=== PATIENT | female | born 1960 | race Caucasian/White ===

== ENCOUNTER 2021-08-04 08:44 | Observation (INO) ==
[2021-08-04] MEDS ORDERED: ZOFRAN INJ 4 MG VIAL IM ONE (08:55)
[2021-08-04] MEDS ORDERED: DEMEROL INJ IM ONE (08:55)
--- NOTE | 2021-08-04 08:57 | ED.ABDFE ---
HPI Time Seen Time Seen by Provider: 08/04/21 08:53 PCP Primary Care Physician: KATIE ALVARENGA HPI Comment HPI Comment: PATIENT IS 61YR OLD FEMALE IN ER WITH NAUSEA, VOMITING TIMES 2 DAYS. WORSE TODAY, NO FEVER OR DYSURIA. PAIN IS SHARP UPPER ABDOMINAL AREA AND IS 10/10. SEEN IN ER YESTERDAY FOR PAIN AND TREATED FOR GASTRITIS. DID NOT IMPROVED. Complaint Doctors Chief Complaint Comments: ABDOMINAL PAIN, NAISEA AND VOMITING TIMES 2 DAYS. Chief Complaint:: PT. C/O ABDOMINAL PAIN WELL NAUSEA/VOMITING. PT. WAS SEEN IN THE ER YESTERDAY AND WAS DIAGNOSED WITH GASTRITIS. COVID-19 Coronavirus risk:travel/contact w/high risk person: No Has patient experienced Coronavirus symptoms: No Reviewed Nurses Notes Review: Yes Source History Provided: Patient Mode of arrival Mode of Arrival: Ambulatory Timing Onset of Chief Complaint: 08/02/21 Came on: Suddenly Duration Since Onset: Constant Duration: Days Location Location: RUQ, LUQ and Epigastric Severity Severity: Severe Quality Quality: Sharp Context History of: None Modifying factors Worsening Factors: Food Improving Factors: Nothing Associated signs and symptoms Associated Signs and Symptoms: Nausea and Vomiting; denies Hematochezia Other history Other History: HYPOTHYROIDISM. PMH PMH Past Medical History: Yes Past Medical History: Hypothyroidism Past Surgical History: Yes Surgical History: Hysterectomy and Thyroidectomy Family History History of Family Medical Conditions: No Social History Does patient currently use any type of tobacco product: No Have you used tobacco products in the last 12 months: No Type of Tobacco Use: None Does any household member use tobacco: No Alcohol Use: None Do you use any recreational Drugs:: No Lives With: Alone Lives Where: Home Travel Risk Coronavirus risk:travel/contact w/high risk person: No Has patient experienced Coronavirus symptoms: No Infectious screening In the last 2 months have you had wt loss of >10#?: NO Have you had fever, night sweats or hemotysis?: No Have you traveled outside the country in the last 6 months?: No Isolation: Standard ROS Review of Systems Constitutional: See HPI, Weakness and Fatigue; negative Fever Eyes: No Symptoms Reported and See HPI ENTM: No Symptoms Reported and See HPI; negative Nose Discharge and Nose Congestion Respiratoy: No Symptoms Reported and See HPI; negative Moist Cough, Short of Breath and Wheezing Cardiovascular: No Symptoms Reported and See HPI; negative Chest Pain Gastrointestinal/Abdominal: See HPI, Abdominal Pain, Nausea and Vomiting; negative Diarrhea Genitourinary: No Symptoms Reported and See HPI; negative Dysuria Neurological: See HPI and Weakness Musculoskeletal: No Symptoms Reported and See HPI; negative Back Pain Integumentary: No Symptoms Reported and See HPI; negative Rash and Juandice Hematologic/Lymphatic: No Symptoms Reported and See HPI; negative Easy Bruising Endocrine: No Symptoms Reported and See HPI; negative Increased Thirst and Increased Urine Psychiatric: No Symptoms Reported and See HPI All Other Systems: Reviewed and Negative PE Vital Signs Vitals: Temperature 98.9 F Pulse Rate 83 Respiratory Rate 20 Blood Pressure [Left Arm] 181/90 Blood Pressure 180/94 O2 Sat by Pulse Oximetry 98 General Limitations: No Limitations General Appearance: Alert and In No Apparent Distress Head Head Exam: Normal Inspection and Atraumatic Eyes Eye exam: Normal Appearance; negative Scleral Icterus and Conjunctival Injection ENT ENT Exam: Normal Exam, Normal Oropharynx, Normal External Ear Exam and TM's Normal Bilaterally Neck Neck Exam: Normal Inspection and Trachea Midline; negative Tenderness Chest Chest Inspection: Normal Inspection and Symmetric Chest Wall Rise; negative Te nderness Respiratory Respiratory Exam: Normal Lung Sounds Bilat; negative Accessory Muscle Use, Chest Wall Tenderness and Respiratory Distress Respiratory Exam: Bilateral: Clear to Auscultation Cardiovascular Cardiovascular Exam: Regular Rate, Normal Rhythm and Normal Heart Sounds; negative Systolic Murmur and Diastolic Murmur Abdominal Exam Abdominal Exam: Normal Bowel Sounds, Soft and Tenderness Abdominal Tenderness: RUQ, LUQ, Epigastrium and Severe Rectal Rectal Exam: Deferred Back Back Exam: Normal Inspection; negative (R) CVA Tenderness and (L) CVA Tenderness Extremeties Extremities Exam: Normal Inspection and Normal Capillary Refill External Exam: Female: Deferred : Speculum Exam (Female): Deferred : Bimanual Exam (female): Deferred Neurologic Neurological Exam: Alert and Oriented X3; negative Motor Sensory Deficit Psychiatric Psychiatric Exam: Normal Affect and Normal Mood Skin Skin Exam: Warm, Dry and Intact MDM Differential Diagnosis Differential Diagnosis- Considerations may include:: Cholcystitis, Cholelethiasis, Constipation, Diverticular disease, Gastroenteritis, Inflammatory BD, Urinary tract infection and Urolithiasis COURSE Treatment Treatment: SEE ORDERS DONE WHILE PATIENT WAS IN ER. PATIENT WAS GIVEN DEMOROL 50MG IM AND ZOFRAN 4MG IM WHILE IN ER. LABS AND XRAY REPORTS DISCUSSED WITH PATIENT WHILE IN ER. ADMITTED TO HOSPITAL FOR FURTHER MANAGEMENT. Reevaluation 1st: Improved (PAIN IMPROVED.) Consultation Consultation Comments: PATIENT ADMITTED TO HOSPITAL BY DR. FITZGERALD. Education/Counseling Education/Counseling: Patient Educated On: Diagnosis ROR Labs Reviewed Laboratory Results Reviewed?: Yes Result Diagrams: 08/06/21 05:41 08/06/21 05:41 Laboratory: WBC 15.5 X10^3/uL (3.6-10.0) H 08/04/21 09:01 RBC 4.93 X10^6/uL (3.5-5.4) 08/04/21 09:01 Hgb 14.4 g/dL (12.0-16.0) 08/04/21 09:01 Hct 42.6 % (36.0-47.0) 08/04/21 09:01 MCV 86.4 fL (80.0-100.0) 08/04/21 09:01 MCH 29.2 pg (27.0-34.0) 08/04/21 09:01 MCHC 33.7 g/dL (33.0-35.0) 08/04/21 09:01 RDW 14.1 % (11.6-16.5) 08/04/21 09:01 Plt Count 274 X10^3/uL (150.0-450.0) 08/04/21 09:01 MPV 8.6 fL (7.4-11.0) 08/04/21 09:01 Neut % (Auto) 86.0 % (42.0-75.0) H 08/04/21 09:01 Lymph % (Auto) 4.7 % (21.0-51.0) L 08/04/21 09:01 [place] % (Auto) 8.9 % (0.0-13.0) 08/04/21 09:01 Eos % (Auto) 0.1 % (0.9-2.9) L 08/04/21 09:01 Baso % (Auto) 0.3 % (0.2-1.0) 08/04/21 09:01 Neut # (Auto) 13.3 x10^3/uL (2.2-4.8) H 08/04/21 09:01 Lymph # (Auto) 0.7 X10^3/uL (1.3-2.9) L 08/04/21 09:01 [place] # (Auto) 1.4 x10^3/uL (0.3-0.8) H 08/04/21 09:01 Eos # (Auto) 0.0 x10^3/uL (0.0-0.2) 08/04/21 09:01 Baso # (Auto) 0.0 X10^3/uL (0.0-0.1) 08/04/21 09:01 Absolute Nucleated RBC 0.0 /100WBC 08/04/21 09:01 Sodium 136 mmol/L (136-145) 08/04/21 09:01 Corrected Sodium 137 mmol/L (136-145) 08/04/21 09:01 Potassium 3.6 mmol/L (3.5-5.1) 08/04/21 09:01 Chloride 98 mmol/L (98-107) 08/04/21 09:01 Carbon Dioxide 31.8 mmol/L (21-32) 08/04/21 09:01 BUN 12 mg/dL (7-18) 08/04/21 09:01 Creatinine 1.10 mg/dL (0.55-1.02) H 08/04/21 09:01 Est GFR (MDRD) Af Amer > 60 (>60) 08/04/21 09:01 Est GFR (MDRD) Non-Af 54 (>60) L 08/04/21 09:01 Glucose 139 mg/dL (65-99) H 08/04/21 09:01 Calcium 8.3 mg/dL (8.5-10.1) L 08/04/21 09:01 Corrected Calcium TNP 08/04/21 09:01 Total Bilirubin 1.00 mg/dL (0.2-1.0) 08/04/21 09:01 AST 17 Units/L (15-37) 08/04/21 09:01 ALT 19 Units/L (12-78) 08/04/21 09:01 Alkaline Phosphatase 76 Units/L (46-116) 08/04/21 09:01 Total Protein 7.6 g/dL (6.4-8.2) 08/04/21 09:01 Albumin 3.4 g/dL (3.4-5.0) 08/04/21 09:01 Globulin 4.2 g/dL (2.5-4.5) 08/04/21 09:01 Albumin/Globulin Ratio 0.8 Ratio (1.1-2.1) L 08/04/21 09:01 Amylase 99 Units/L (25-115) 08/04/21 09:01 Lipase 500 Units/L (73-393) H 08/04/21 09:01 SARS CoV-2 RNA Rapid LISSETH Negative (NEGATIVE) 08/04/21 12:58 XRAY XRAY Interpreted by: Radiologist (REPORT NOTED.) and Self Opioid Opioid Risk Tool Age (Ulisses box if 16-45): No History of Preadolescent Sexual Abuse: No Total: 0 Total Score Risk Category: Low Risk Copyright: Juan Francisco BERNARDO predicting aberrant behaviors Diagnosis Discharge Problem: Acute cholecystitis Abdominal pain Qualifiers: Abdominal location: upper abdomen, unspecified Qualified Code(s): R10.10 - Upper abdominal pain, unspecified Cholelithiasis Qualifiers: Cholelithiasis location: gallbladder Cholecystitis presence: with cholecystitis Cholecystitis acuity: acute Biliary obstruction: without biliary obstruction Qualified Code(s): K80.00 - Calculus of gallbladder with acute cholecystitis without obstruction Instructions Instructions: Laparoscopic Cholecystectomy Laparoscopic Cholecystectomy, Care After Eating Plan for Dumping Syndrome Gallbladder Eating Plan Dumping Syndrome [place] Diet Forms: Precautions for COVID19 [facility] Patient [facility] Social Distancing
[2021-08-04] MEDS ORDERED: DEMEROL INJ ONE (09:05)
[2021-08-04] MEDS ORDERED: ZOFRAN INJ 4 MG VIAL ONE ×2 (09:05→11:32)
[2021-08-04 09:13] LABS: BASOPHILS % (AUTO) 0.3 % (0.2-1.0); EOSINOPHILS % (AUTO) 0.1 % (0.9-2.9); HEMATOCRIT 42.6 % (36.0-47.0); HEMOGLOBIN 14.4 g/dL (12.0-16.0); LYMPHOCYTES # (AUTO) 0.7 X10^3/uL (1.3-2.9); LYMPHOCYTES % (AUTO) 4.7 % (21.0-51.0); MEAN CORPUSCULAR HEMOGLOBIN 29.2 pg (27.0-34.0); MEAN CORPUSCULAR HGB CONC 33.7 g/dL (33.0-35.0); MEAN CORPUSCULAR VOLUME 86.4 fL (80.0-100.0); MEAN PLATELET VOLUME 8.6 fL (7.4-11.0); MONOCYTES # (AUTO) 1.4 x10^3/uL (0.3-0.8); MONOCYTES % (AUTO) 8.9 % (0.0-13.0); NEUTROPHILS # (AUTO) 13.3 x10^3/uL (2.2-4.8); RED BLOOD COUNT 4.93 X10^6/uL (3.5-5.4); RED CELL DISTRIBUTION WIDTH 14.1 % (11.6-16.5); WHITE BLOOD COUNT 15.5 X10^3/uL (3.6-10.0)
[2021-08-04 09:24] LABS: ALANINE AMINOTRANSFERASE 19 Units/L (12-78); ALBUMIN 3.4 g/dL (3.4-5.0); ALKALINE PHOSPHATASE 76 Units/L (46-116); AMYLASE 99 Units/L (25-115); ASPARTATE AMINO TRANSFERASE 17 Units/L (15-37); BLOOD UREA NITROGEN 12 mg/dL (7-18); CALCIUM 8.3 mg/dL (8.5-10.1); CARBON DIOXIDE 31.8 mmol/L (21-32); CHLORIDE 98 mmol/L (98-107); COR NA(FOR HYPERGLY) 137 mmol/L (136-145); LIPASE 500 Units/L (73-393); SODIUM 136 mmol/L (136-145); TOTAL PROTEIN 7.6 g/dL (6.4-8.2); eGFR NON BLACK RACES 54 (>60)
--- NOTE | 2021-08-04 10:31 | CT ---
HISTORYAbdominal pain, nausea, vomitingSTUDYCT abdomen pelvis without contrastTechnique: Axial noncontrast images with coronal and sagittal reformats. Dose reduction procedures were used with mA/kv adjusted for body size. THIS EXAMINATION IS LIMITED DUE TO THE LACK OF INTRAVENOUS AND ORAL CONTRAST. The examination was performed in this manner at the sole discretion of the ordering caregiver.COMPARISONNoneFINDINGSThe lung bases are clear. The liver is normal in size and configuration without focal space-occupying disease at least to the limitations of an unenhanced examination. Cholelithiasis is present within a somewhat distended gallbladder which demonstrates some wall thickening and mild pericholecystic inflammation. Developing acute cholecystitis is suspected. Sonography may be of further diagnostic value in assessing these findings. The spleen, adrenal glands, and pancreas are within normal limits only to the limitations of an unenhanced examination. The kidneys are unobstructed and without stones or masses. No ureteral calculi are identified. The appendix is not identified with absolute certainty. Patient may be status post appendectomy. There are no findings suggestive of enteritis, colitis, or diverticulitis. Surgical clips are present within the pelvis. No pelvic masses, pelvic fluid, or pelvic lymphadenopathy is identified. No bladder abnormality is identified. No lytic or blastic skeletal lesions of significance are identified. There is grade 1 anterolisthesis L5 on S1 secondary to bilateral spondylolysis at L5.IMPRESSIONCholelithiasis within a mildly distended gallbladder demonstrating gallbladder wall thickening and mild pericholecystic inflammation suggestive of developing acute cholecystitis. Sonography may be of further diagnostic value in assessing for cholecystitis. Surgical evaluation is recommended.Grade 1 anterolisthesis L5 on S1 secondary to bilateral spondylolysis at [id number] signed by: BE DIAZ (Aug 04, 2021 10:30:43)
[2021-08-04] MEDS ORDERED: ZOFRAN INJ 4 MG VIAL IVP ONE (11:25)
--- NOTE | 2021-08-04 12:08 | US ---
HISTORYCholecystitis, abdominal painSTUDYGallbladder sonogramTechnique: Multiple grayscale sonographic images were obtained.COMPARISONCT abdomen pelvis same dateFINDINGSThe liver was mildly enlarged AP diameter 19.1 cm. No cyst, masses, biliary ductal dilatation identified. Limited Doppler evaluation was normal. There is a gallstone present in the neck of the gallbladder. There is gallbladder wall thickening and minimal pericholecystic fluid suggestive of acute cholecystitis. Common duct measures 3.7 mm. Right kidney measured 10.4 cm in length and demonstrated no solid masses, hydronephrosis, stones, or perinephric fluid collections. The head and body of the pancreas appear normal. The tail was obscured by overlying bowel gas.IMPRESSIONCholelithiasis with gallbladder wall thickening and minimal pericholecystic fluid suggestive of developing acute cholecystitis. Surgical evaluation is recommended.Electronically signed by: BE DIAZ (Aug 04, 2021 12:07:17)
[2021-08-04] MEDS ORDERED: ZOFRAN INJ 4 MG VIAL IVP PRN (14:31)
[2021-08-04] MEDS: NS 1,000 ML IV 1,000 ML IV SCH (14:43)
[2021-08-04] MEDS: LEVAQUIN PREMIX IV 750 MG 750 MG/150 ML BAG IV SCH (14:46)
[2021-08-04] MEDS ORDERED: APRESOLINE INJ 20 MG VIAL IVP PRN (14:48)
[2021-08-04] MEDS ORDERED: DEMEROL INJ IVP PRN ×2 (14:49→14:51)
[2021-08-04 14:53] VITALS: BMI 39.9
[2021-08-04] MEDS: PROTONIX INJ 40 MG VIAL IVP SCH (15:24)
[2021-08-04] MEDS ORDERED: APRESOLINE INJ 20 MG VIAL ONE (15:26)
[2021-08-04] MEDS ORDERED: PROTONIX INJ 40 MG VIAL ONE (15:27)
--- NOTE | 2021-08-04 15:51 | RAD ---
HISTORYSOBSTUDYCHEST x-ray, 1 VIEWCOMPARISONX-ray 08/03/2021FINDINGSThe trachea is midline. Possible mild cardiomegaly without pulmonary venous congestion.Lungs appear clear. No pneumothorax or pleural effusion is seen.No acute bony abnormality is seen.IMPRESSIONPossible cardiomegaly without CHF.Electronically signed by: Ceasar Bro (Aug 04, 2021 15:50:14)
[2021-08-05 05:14] LABS: BASOPHILS % (AUTO) 0.1 % (0.2-1.0); EOSINOPHILS % (AUTO) 0.1 % (0.9-2.9); HEMATOCRIT 42.1 % (36.0-47.0); HEMOGLOBIN 14.2 g/dL (12.0-16.0); LYMPHOCYTES % (AUTO) 4.5 % (21.0-51.0); MEAN CORPUSCULAR HEMOGLOBIN 29.4 pg (27.0-34.0); MEAN CORPUSCULAR HGB CONC 33.7 g/dL (33.0-35.0); MEAN CORPUSCULAR VOLUME 87.2 fL (80.0-100.0); MEAN PLATELET VOLUME 9.1 fL (7.4-11.0); MONOCYTES % (AUTO) 9.4 % (0.0-13.0); NEUTROPHILS # (AUTO) 18.2 x10^3/uL (2.2-4.8); NEUTROPHILS % (AUTO) 85.9 % (42.0-75.0); RED BLOOD COUNT 4.83 X10^6/uL (3.5-5.4); RED CELL DISTRIBUTION WIDTH 14.5 % (11.6-16.5)
[2021-08-05 05:28] LABS: ALANINE AMINOTRANSFERASE 19 Units/L (12-78); ALKALINE PHOSPHATASE 84 Units/L (46-116); ASPARTATE AMINO TRANSFERASE 20 Units/L (15-37); BLOOD UREA NITROGEN 11 mg/dL (7-18); CALCIUM 8.5 mg/dL (8.5-10.1); CARBON DIOXIDE 29.3 mmol/L (21-32); CHLORIDE 99 mmol/L (98-107); COR CA(FOR HYPOALB) 9.3 mg/dL (8.5-10.1); COR NA(FOR HYPERGLY) 134 mmol/L (136-145); CREATININE 1.12 mg/dL (0.55-1.02); SODIUM 134 mmol/L (136-145); TOTAL PROTEIN 7.5 g/dL (6.4-8.2); eGFR NON BLACK RACES 53 (>60)
[2021-08-05] MEDS: NS 1,000 ML IV 1,000 ML IV SCH ×2 (05:46→15:31)
[2021-08-05 05:49] LABS: WHITE BLOOD COUNT 23.7 X10^3/uL (3.6-10.0)
[2021-08-05 05:50] LABS: PLATELET MORPHOLOGY COMMENT NORMAL (NORMAL)
[2021-08-05] MEDS ORDERED: LR 1,000 ML IV 1,000 ML IV ONE (08:26)
[2021-08-05] MEDS ORDERED: CLEOCIN 600 MG IV PREMIX 600 MG/50 ML BAG IV ONE (08:27)
[2021-08-05] MEDS ORDERED: BACTROBAN TOPICAL OINT ONE (08:38)
[2021-08-05] MEDS ORDERED: ROBINUL ONE (08:54)
[2021-08-05] MEDS ORDERED: DECADRON INJ ONE (08:54)
[2021-08-05] MEDS ORDERED: PEPCID 20 MG VIAL ONE (08:54)
[2021-08-05] MEDS ORDERED: ZOFRAN INJ 4 MG VIAL ONE (08:54)
[2021-08-05] MEDS ORDERED: ZEMURON 100 MG VIAL ONE (08:54)
--- NOTE | 2021-08-05 08:54 | DR.H&P ---
H&P History & Physical for Day of: H&P Date: 08/05/21 Chief Complaint Chief Complaint: abdominal pain, nausea/vomiting Allergies Allergies Allergy/AdvReac Type Severity Reaction Status Date / Time Penicillins AdvReac Verified 08/03/21 06:49 History of Present Illness History of Present Illness: Ms Ontiveros is a 61 y/o female with a hx of GERD and hypothyroidism who presented with worsening abdominal pain, nausea/vomiting. Patient was seen in the ER earlier yesterday morning for similar symptoms, CTAP was recommended but due to patient not having insurance, she declined and opted for conservative treatment for gastritis. Patient states her abdominal pain got worse in the next 24 hrs. She was not able to eat or drink anything so she came back to the ER. She states initially she had right sided pain and then epigastric pain. In the ER, gall bladder U/S showed early signs of acute cholecystitis. Dr Tate was consulted and patient was admitted for further work-up. She has been NPO since midnight. No vomiting overnight. She states her pain is better controlled. Labs/imaging reviewed Plan: continue IV hydration, pain control and anti-emetics. Continue IV antibiotics. Plan for cholecystectomy this morning. Continue NPO status. Resume home medications after surgery. Monitor AM labs/imaging. 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 Family History Family Medical History: Cancer, CA and Hypertension Social History Does patient currently use any type of tobacco product: No (quit 6 yrs ago) Have you used tobacco products in the last 12 months: No (smoked 30 yrs) Type of Tobacco Use: None Does any household member use tobacco: No Alcohol Use: None Drug Use: None Prescription drug monitoring program results: PDMP reviewed and no concerns identified Medications Home Medications: Penicillins Adverse Reaction (Verified 08/03/21 06:49) CONTINUE taking the following medications levothyroxine 137 mcg PO DAILY 08/04/21 [History] Labs Result Diagrams: 08/05/21 04:50 08/05/21 04:50 Labs: Laboratory WBC 23.7 X10^3/uL (3.6-10.0) H D 08/05/21 04:50 RBC 4.83 X10^6/uL (3.5-5.4) 08/05/21 04:50 Hgb 14.2 g/dL (12.0-16.0) 08/05/21 04:50 Hct 42.1 % (36.0-47.0) 08/05/21 04:50 MCV 87.2 fL (80.0-100.0) 08/05/21 04:50 MCH 29.4 pg (27.0-34.0) 08/05/21 04:50 MCHC 33.7 g/dL (33.0-35.0) 08/05/21 04:50 RDW 14.5 % (11.6-16.5) 08/05/21 04:50 Plt Count 248 X10^3/uL (150.0-450.0) 08/05/21 04:50 Plt Count Comment Adequate (ADEQUATE) 08/05/21 04:50 MPV 9.1 fL (7.4-11.0) 08/05/21 04:50 Neut % (Auto) 85.9 % (42.0-75.0) H 08/05/21 04:50 Lymph % (Auto) 4.5 % (21.0-51.0) L 08/05/21 04:50 [place] % (Auto) 9.4 % (0.0-13.0) 08/05/21 04:50 Eos % (Auto) 0.1 % (0.9-2.9) L 08/05/21 04:50 Baso % (Auto) 0.1 % (0.2-1.0) L 08/05/21 04:50 Neut # (Auto) 18.2 x10^3/uL (2.2-4.8) H 08/05/21 04:50 Lymph # (Auto) 1.0 X10^3/uL (1.3-2.9) L 08/05/21 04:50 [place] # (Auto) 2.0 x10^3/uL (0.3-0.8) H 08/05/21 04:50 Eos # (Auto) 0.0 x10^3/uL (0.0-0.2) 08/05/21 04:50 Baso # (Auto) 0.0 X10^3/uL (0.0-0.1) 08/05/21 04:50 Absolute Nucleated RBC 0.1 /100WBC 08/05/21 04:50 Total Counted 100 08/05/21 04:50 Neutrophils % (Manual) 84 % (39-76) H 08/05/21 04:50 Lymphocytes % (Manual) 4 % (13-43) L 08/05/21 04:50 Monocytes % (Manual) 11 % (4-9) H 08/05/21 04:50 Eosinophils % (Manual) 1 % (0-6) 08/05/21 04:50 Plt Morphology Comment Normal (NORMAL) 08/05/21 04:50 RBC Morphology Normal (NORMAL) 08/05/21 04:50 Sodium 134 mmol/L (136-145) L 08/05/21 04:50 Corrected Sodium 134 mmol/L (136-145) L 08/05/21 04:50 Potassium 3.7 mmol/L (3.5-5.1) 08/05/21 04:50 Chloride 99 mmol/L (98-107) 08/05/21 04:50 Carbon Dioxide 29.3 mmol/L (21-32) 08/05/21 04:50 BUN 11 mg/dL (7-18) 08/05/21 04:50 Creatinine 1.12 mg/dL (0.55-1.02) H 08/05/21 04:50 Est GFR (MDRD) Af Amer > 60 (>60) 08/05/21 04:50 Est GFR (MDRD) Non-Af 53 (>60) L 08/05/21 04:50 Glucose 111 mg/dL (65-99) H 08/05/21 04:50 Calcium 8.5 mg/dL (8.5-10.1) 08/05/21 04:50 Corrected Calcium 9.3 mg/dL (8.5-10.1) 08/05/21 04:50 Total Bilirubin 0.90 mg/dL (0.2-1.0) 08/05/21 04:50 AST 20 Units/L (15-37) 08/05/21 04:50 ALT 19 Units/L (12-78) 08/05/21 04:50 Alkaline Phosphatase 84 Units/L (46-116) 08/05/21 04:50 Total Protein 7.5 g/dL (6.4-8.2) 08/05/21 04:50 Albumin 3.0 g/dL (3.4-5.0) L 08/05/21 04:50 Globulin 4.5 g/dL (2.5-4.5) 08/05/21 04:50 Albumin/Globulin Ratio 0.7 Ratio (1.1-2.1) L 08/05/21 04:50 Amylase 99 Units/L (25-115) 08/04/21 09:01 Lipase 500 Units/L (73-393) H 08/04/21 09:01 SARS CoV-2 RNA Rapid LISSETH Negative (NEGATIVE) 08/04/21 12:58 Review of Systems Constitutional: Malaise Eyes: No Symptoms Reported ENT: No Symptoms Reported Respiratory: No Symptoms Reported Cardiovascular: No Symptoms Reported Gastrointestinal: Nausea, Vomiting and Abdominal Pain Genitourinary: No Symptoms Reported Musculoskeletal: No Symptoms Reported Skin: No Symptoms Reported Neurological: No Symptoms Reported Physical Exam Vital Signs: Temperature 98.8 F Pulse Rate [Left Brachial] 85 Pulse Rate [Right Brachial] 86 Pulse Rate 82 Respiratory Rate 19 Blood Pressure [Right Arm] 130/69 Blood Pressure [Left Arm] 141/73 Blood Pressure 171/89 O2 Sat by Pulse Oximetry 95 Oriented: Normal Eyes: Normal Ear: Normal Nose: Normal Throat: Normal Respiratory: Clear Throughout Cardiovascular: Normal Auscultation: Bowel Sounds: Normal Tenderness: Epigastric, Periumbilical and Mild Skin: Normal Musculoskeletal: Normal Psychiatric: Normal Mood Description: Calm Affect: Normal Speech Pattern: Clear and Appropriate Assessment/Plan (1) Acute cholecystitis: Status: Acute (2) Intractable nausea and vomiting: Status: Acute (3) Hypothyroidism: Qualifiers: Hypothyroidism type: unspecified Qualified Code(s): E03.9 - Hypothyroidism, unspecified Status: Acute Review H&P Reviewed: Yes Patient was examined?: Yes
[2021-08-05] MEDS ORDERED: PRECEDEX INJ VIAL IVP ONE (08:55)
[2021-08-05] MEDS ORDERED: DIPRIVAN VIAL 20 ML ONE (08:55)
[2021-08-05] MEDS ORDERED: VERSED ONE (08:59)
[2021-08-05] MEDS ORDERED: KETAMINE 50 MG/5 ML-NACL SYRNG ONE (09:01)
[2021-08-05] MEDS ORDERED: MORPHINE SULFATE INJ 10 MG ONE (09:04)
[2021-08-05] MEDS ORDERED: ULTANE GAS IN ONE ×2 (09:32→12:32)
[2021-08-05] MEDS ORDERED: SUPRANE ONE (09:32)
[2021-08-05] MEDS ORDERED: BRIDION ONE (10:06)
[2021-08-05] MEDS ORDERED: NEO-SYNEPHRINE INJ ONE (10:15)
[2021-08-05] MEDS ORDERED: DILAUDID INJ IVP PRN ×2 (12:44→13:04)
[2021-08-05] MEDS ORDERED: PHENERGAN INJ 25 MG IM PRN (12:44)
[2021-08-05] MEDS ORDERED: REGLAN INJ 10 MG VIAL IVP PRN (12:44)
[2021-08-05] MEDS ORDERED: BARHEMSYS INJ IVP PRN (12:44)
[2021-08-05] MEDS ORDERED: BENADRYL INJ 50 MG VIAL IVP PRN (12:44)
[2021-08-05] MEDS ORDERED: ZOFRAN INJ 4 MG VIAL IVP PRN (12:44)
[2021-08-05] MEDS: D5 1/2 NS 1,000 ML 1,000 ML IV SCH (14:30)
[2021-08-05] MEDS: CLEOCIN 300 MG IV PREMIX 300 MG/50 ML BAG IV SCH ×2 (14:30→22:15)
[2021-08-05] MEDS: PROTONIX INJ 40 MG VIAL IVP SCH (14:30)
[2021-08-05] MEDS: LEVAQUIN PREMIX IV 750 MG 750 MG/150 ML BAG IV SCH (15:30)
[2021-08-05] MEDS: FLAGYL IV PREMIX 500 MG BAG 500 MG/100 ML BAG IV SCH ×2 (15:30→22:50)
[2021-08-06] MEDS: D5 1/2 NS 1,000 ML 1,000 ML IV SCH ×2 (02:09→13:45)
[2021-08-06] MEDS: CLEOCIN 300 MG IV PREMIX 300 MG/50 ML BAG IV SCH (05:24)
[2021-08-06 06:12] LABS: BASOPHILS % (AUTO) 0.2 % (0.2-1.0); EOSINOPHILS % (AUTO) 0.1 % (0.9-2.9); HEMATOCRIT 38.3 % (36.0-47.0); HEMOGLOBIN 12.9 g/dL (12.0-16.0); LYMPHOCYTES # (AUTO) 0.8 X10^3/uL (1.3-2.9); LYMPHOCYTES % (AUTO) 5.7 % (21.0-51.0); MEAN CORPUSCULAR HEMOGLOBIN 29.3 pg (27.0-34.0); MEAN CORPUSCULAR HGB CONC 33.5 g/dL (33.0-35.0); MEAN CORPUSCULAR VOLUME 87.4 fL (80.0-100.0); MONOCYTES # (AUTO) 1.3 x10^3/uL (0.3-0.8); MONOCYTES % (AUTO) 10.1 % (0.0-13.0); NEUTROPHILS # (AUTO) 11.2 x10^3/uL (2.2-4.8); NEUTROPHILS % (AUTO) 83.9 % (42.0-75.0); RED BLOOD COUNT 4.39 X10^6/uL (3.5-5.4); RED CELL DISTRIBUTION WIDTH 14.6 % (11.6-16.5); WHITE BLOOD COUNT 13.4 X10^3/uL (3.6-10.0)
[2021-08-06 06:21] LABS: ALANINE AMINOTRANSFERASE 73 Units/L (12-78); ALBUMIN 2.4 g/dL (3.4-5.0); ALKALINE PHOSPHATASE 69 Units/L (46-116); ASPARTATE AMINO TRANSFERASE 88 Units/L (15-37); BLOOD UREA NITROGEN 11 mg/dL (7-18); CALCIUM 7.9 mg/dL (8.5-10.1); CARBON DIOXIDE 31.7 mmol/L (21-32); CHLORIDE 102 mmol/L (98-107); COR CA(FOR HYPOALB) 9.2 mg/dL (8.5-10.1); COR NA(FOR HYPERGLY) 136 mmol/L (136-145); CREATININE 1.05 mg/dL (0.55-1.02); SODIUM 136 mmol/L (136-145); TOTAL PROTEIN 6.6 g/dL (6.4-8.2); eGFR NON BLACK RACES 57 (>60)
[2021-08-06] MEDS: FLAGYL IV PREMIX 500 MG BAG 500 MG/100 ML BAG IV SCH (07:00)
[2021-08-06 08:37] VITALS: BP 143/68
[2021-08-06] MEDS: PROTONIX INJ 40 MG VIAL IVP SCH (09:17)
--- NOTE | 2021-08-06 09:25 | W.DIS.FURT ---
Summary of Discharge Discharge Summary of Date Date of Exam: 08/06/21 Admission Date Date of Admission: 08/04/21 Admission Diagnosis Hospital Course: Ms Ontiveros is a 61 y/o female with a hx of GERD and hypothyroidism who presented with worsening abdominal pain, nausea/vomiting. Patient was seen in the ER earlier yesterday morning for similar symptoms, CTAP was recommended but due to patient not having insurance, she declined and opted for conservative treatment for gastritis. Patient states her abdominal pain got worse in the next 24 hrs. She was not able to eat or drink anything so she came back to the ER. She states initially she had right sided pain and then epigastric pain. In the ER, gall bladder U/S showed early signs of acute cholecystitis. Dr Tate was consulted and patient was admitted for further work-up. She was kept NPO with IVF and pain control. She was also started on IV antibiotics. Patient was taken for lap cholecystectomy the next morning. She did well after surgery with no complications. She was tolerating oral intake and pain was well controlled. She had a MINE drain which was removed. She was stable for discharge the next day. She will f/u with PCP and surgery as scheduled. Vital Signs: Vital Signs (72 hours) 08/03/21 12:15 08/04/21 08:44 08/04/21 09:10 Temperature 98.9 F Pulse Rate 100 H 90 Pulse Rate [Left Brachial] Pulse Rate [Right Brachial] Respiratory Rate 22 34 H Blood Pressure 178/86 133/91 Blood Pressure [Left Arm] Blood Pressure [Right Arm] O2 Sat by Pulse Oximetry 96 97 08/04/21 09:15 08/04/21 10:15 08/04/21 10:30 Temperature Pulse Rate 88 78 Pulse Rate [Left Brachial] Pulse Rate [Right Brachial] Respiratory Rate 33 H 20 Blood Pressure 187/90 175/105 Blood Pressure [Left Arm] Blood Pressure [Right Arm] O2 Sat by Pulse Oximetry 97 90 L 08/04/21 10:45 08/04/21 11:00 08/04/21 11:15 Temperature Pulse Rate 80 77 81 Pulse Rate [Left Brachial] Pulse Rate [Right Brachial] Respiratory Rate 18 18 20 Blood Pressure 187/97 Blood Pressure [Left Arm] Blood Pressure [Right Arm] O2 Sat by Pulse Oximetry 99 99 99 08/04/21 11:30 08/04/21 11:45 08/04/21 12:00 Temperature Pulse Rate 75 81 82 Pulse Rate [Left Brachial] Pulse Rate [Right Brachial] Respiratory Rate 22 27 H 19 Blood Pressure 198/95 184/87 Blood Pressure [Left Arm] Blood Pressure [Right Arm] O2 Sat by Pulse Oximetry 99 99 98 08/04/21 12:15 08/04/21 12:30 08/04/21 12:31 Temperature Pulse Rate 85 91 H 89 Pulse Rate [Left Brachial] Pulse Rate [Right Brachial] Respiratory Rate 21 14 23 Blood Pressure 210/100 Blood Pressure [Left Arm] Blood Pressure [Right Arm] O2 Sat by Pulse Oximetry 99 99 95 08/04/21 12:45 08/04/21 13:00 08/04/21 13:01 Temperature Pulse Rate 84 84 83 Pulse Rate [Left Brachial] Pulse Rate [Right Brachial] Respiratory Rate 19 19 20 Blood Pressure 180/94 Blood Pressure [Left Arm] Blood Pressure [Right Arm] O2 Sat by Pulse Oximetry 97 98 98 08/04/21 13:15 08/04/21 13:30 08/04/21 13:45 Temperature Pulse Rate 85 81 81 Pulse Rate [Left Brachial] Pulse Rate [Right Brachial] Respiratory Rate 19 18 19 Blood Pressure 188/89 Blood Pressure [Left Arm] Blood Pressure [Right Arm] O2 Sat by Pulse Oximetry 97 97 98 08/04/21 14:00 08/04/21 14:35 08/04/21 16:00 Temperature 99.1 F 99.1 F Pulse Rate 82 Pulse Rate [Left Brachial] 94 H Pulse Rate [Right Brachial] 86 Respiratory Rate 18 20 20 Blood Pressure 171/89 Blood Pressure [Left Arm] 141/73 Blood Pressure [Right Arm] 185/86 O2 Sat by Pulse Oximetry 98 95 95 08/04/21 20:00 08/05/21 00:00 08/05/21 04:00 Temperature 99.5 F 99.0 F 98.8 F Pulse Rate Pulse Rate [Left Brachial] 100 H 100 H 85 Pulse Rate [Right Brachial] Respiratory Rate 22 22 19 Blood Pressure Blood Pressure [Left Arm] Blood Pressure [Right Arm] 115/57 131/70 130/69 O2 Sat by Pulse Oximetry 95 91 L 95 08/05/21 08:00 08/05/21 09:32 08/05/21 12:41 Temperature 98.9 F 97.6 F Pulse Rate 96 H Pulse Rate [Left Brachial] 88 Pulse Rate [Right Brachial] Respiratory Rate 20 14 18 Blood Pressure 157/72 Blood Pressure [Left Arm] Blood Pressure [Right Arm] 139/78 O2 Sat by Pulse Oximetry 93 L 90 L 08/05/21 12:46 08/05/21 12:51 08/05/21 12:56 Temperature Pulse Rate 96 H 96 H 97 H Pulse Rate [Left Brachial] Pulse Rate [Right Brachial] Respiratory Rate 18 18 18 Blood Pressure 150/70 149/70 154/72 Blood Pressure [Left Arm] Blood Pressure [Right Arm] O2 Sat by Pulse Oximetry 92 L 92 L 93 L 08/05/21 13:01 08/05/21 13:06 08/05/21 13:11 Temperature Pulse Rate 98 H 98 H 98 H Pulse Rate [Left Brachial] Pulse Rate [Right Brachial] Respiratory Rate 18 18 18 Blood Pressure 140/60 144/67 143/68 Blood Pressure [Left Arm] Blood Pressure [Right Arm] O2 Sat by Pulse Oximetry 95 95 90 L 08/05/21 13:16 08/05/21 13:21 08/05/21 13:26 Temperature Pulse Rate 96 H 94 H 96 H Pulse Rate [Left Brachial] Pulse Rate [Right Brachial] Respiratory Rate 18 18 18 Blood Pressure 146/68 146/68 133/76 Blood Pressure [Left Arm] Blood Pressure [Right Arm] O2 Sat by Pulse Oximetry 88 L 90 L 90 L 08/05/21 13:31 08/05/21 13:36 08/05/21 13:41 Temperature Pulse Rate 96 H 94 H 93 H Pulse Rate [Left Brachial] Pulse Rate [Right Brachial] Respiratory Rate 18 18 18 Blood Pressure 135/78 135/71 119/62 Blood Pressure [Left Arm] Blood Pressure [Right Arm] O2 Sat by Pulse Oximetry 92 L 92 L 93 L 08/05/21 13:46 08/05/21 14:00 08/05/21 14:15 Temperature 97.6 F 97.5 F L Pulse Rate 93 H Pulse Rate [Left Brachial] 93 H 88 Pulse Rate [Right Brachial] Respiratory Rate 18 20 20 Blood Pressure 122/60 Blood Pressure [Left Arm] 120/66 133/68 Blood Pressure [Right Arm] O2 Sat by Pulse Oximetry 93 L 93 L 94 L 08/05/21 14:30 08/05/21 14:45 08/05/21 15:00 Temperature 97.8 F 98.0 F 98.0 F Pulse Rate Pulse Rate [Left Brachial] 87 86 94 H Pulse Rate [Right Brachial] Respiratory Rate 20 20 20 Blood Pressure Blood Pressure [Left Arm] 144/74 153/74 151/69 Blood Pressure [Right Arm] O2 Sat by Pulse Oximetry 93 L 95 95 08/05/21 16:00 08/05/21 17:00 08/05/21 18:00 Temperature 97.8 F 97.8 F 97.6 F Pulse Rate Pulse Rate [Left Brachial] 90 86 89 Pulse Rate [Right Brachial] Respiratory Rate 20 20 20 Blood Pressure Blood Pressure [Left Arm] 126/62 132/64 144/66 Blood Pressure [Right Arm] O2 Sat by Pulse Oximetry 95 93 L 96 08/05/21 18:53 08/05/21 19:55 08/05/21 20:00 Temperature 97.6 F 98.6 F Pulse Rate 90 Pulse Rate [Left Brachial] 84 84 Pulse Rate [Right Brachial] Respiratory Rate 20 22 Blood Pressure Blood Pressure [Left Arm] Blood Pressure [Right Arm] 128/60 145/66 O2 Sat by Pulse Oximetry 96 96 91 L 08/06/21 00:00 08/06/21 04:00 08/06/21 08:00 Temperature 99.0 F 99.1 F 98.5 F Pulse Rate Pulse Rate [Left Brachial] 79 86 96 H Pulse Rate [Right Brachial] 96 H Respiratory Rate 18 22 18 Blood Pressure Blood Pressure [Left Arm] Blood Pressure [Right Arm] 140/67 137/70 143/68 O2 Sat by Pulse Oximetry 95 93 L 95 Labs: Laboratory Last Values WBC 13.4 X10^3/uL (3.6-10.0) H D 08/06/21 05:41 RBC 4.39 X10^6/uL (3.5-5.4) 08/06/21 05:41 Hgb 12.9 g/dL (12.0-16.0) 08/06/21 05:41 Hct 38.3 % (36.0-47.0) 08/06/21 05:41 MCV 87.4 fL (80.0-100.0) 08/06/21 05:41 MCH 29.3 pg (27.0-34.0) 08/06/21 05:41 MCHC 33.5 g/dL (33.0-35.0) 08/06/21 05:41 RDW 14.6 % (11.6-16.5) 08/06/21 05:41 Plt Count 227 X10^3/uL (150.0-450.0) 08/06/21 05:41 Plt Count Comment Adequate (ADEQUATE) 08/05/21 04:50 MPV 9.0 fL (7.4-11.0) 08/06/21 05:41 Neut % (Auto) 83.9 % (42.0-75.0) H 08/06/21 05:41 Lymph % (Auto) 5.7 % (21.0-51.0) L 08/06/21 05:41 Mccracken % (Auto) 10.1 % (0.0-13.0) 08/06/21 05:41 Eos % (Auto) 0.1 % (0.9-2.9) L 08/06/21 05:41 Baso % (Auto) 0.2 % (0.2-1.0) 08/06/21 05:41 Neut # (Auto) 11.2 x10^3/uL (2.2-4.8) H 08/06/21 05:41 Lymph # (Auto) 0.8 X10^3/uL (1.3-2.9) L 08/06/21 05:41 M[place]racken # (Auto) 1.3 x10^3/uL (0.3-0.8) H 08/06/21 05:41 Eos # (Auto) 0.0 x10^3/uL (0.0-0.2) 08/06/21 05:41 Baso # (Auto) 0.0 X10^3/uL (0.0-0.1) 08/06/21 05:41 Absolute Nucleated RBC 0.0 /100WBC 08/06/21 05:41 Total Counted 100 08/05/21 04:50 Neutrophils % (Manual) 84 % (39-76) H 08/05/21 04:50 Lymphocytes % (Manual) 4 % (13-43) L 08/05/21 04:50 Monocytes % (Manual) 11 % (4-9) H 08/05/21 04:50 Eosinophils % (Manual) 1 % (0-6) 08/05/21 04:50 Plt Morphology Comment Normal (NORMAL) 08/05/21 04:50 RBC Morphology Normal (NORMAL) 08/05/21 04:50 Sodium 136 mmol/L (136-145) 08/06/21 05:41 Corrected Sodium 136 mmol/L (136-145) 08/06/21 05:41 Potassium 3.6 mmol/L (3.5-5.1) 08/06/21 05:41 Chloride 102 mmol/L (98-107) 08/06/21 05:41 Carbon Dioxide 31.7 mmol/L (21-32) 08/06/21 05:41 BUN 11 mg/dL (7-18) 08/06/21 05:41 Creatinine 1.05 mg/dL (0.55-1.02) H 08/06/21 05:41 Est GFR (MDRD) Af Amer > 60 (>60) 08/06/21 05:41 Est GFR (MDRD) Non-Af 57 (>60) L 08/06/21 05:41 Glucose 115 mg/dL (65-99) H 08/06/21 05:41 Calcium 7.9 mg/dL (8.5-10.1) L 08/06/21 05:41 Corrected Calcium 9.2 mg/dL (8.5-10.1) 08/06/21 05:41 Total Bilirubin 0.40 mg/dL (0.2-1.0) 08/06/21 05:41 AST 88 Units/L (15-37) H 08/06/21 05:41 ALT 73 Units/L (12-78) 08/06/21 05:41 Alkaline Phosphatase 69 Units/L (46-116) 08/06/21 05:41 Total Protein 6.6 g/dL (6.4-8.2) 08/06/21 05:41 Albumin 2.4 g/dL (3.4-5.0) L 08/06/21 05:41 Globulin 4.2 g/dL (2.5-4.5) 08/06/21 05:41 Albumin/Globulin Ratio 0.6 Ratio (1.1-2.1) L 08/06/21 05:41 Amylase 99 Units/L (25-115) 08/04/21 09:01 Lipase 500 Units/L (73-393) H 08/04/21 09:01 SARS CoV-2 RNA Rapid LISSETH Negative (NEGATIVE) 08/04/21 12:58 Tissue Pathology To follow 08/05/21 12:08 Reason For Visit: ACUTE CHOLECYSTITIS, CHOLELITHIASIS, ABD PAIN Discharge Date Discharge Date: 08/06/21 Discharge Diagnosis All Active Problems (Updated 08/05/21 @ 09:02 by Meme Conte) Intractable nausea and vomiting (Acute) Hypothyroidism (Acute) Acute cholecystitis (Acute) Gastritis (Acute) Plan of Treatment: Continue with present treatment and follow up plan. Pt is to keep follow up appointment as instructed and take medications as ordered. Discharge Medications Discharge Medications: Penicillins Adverse Reaction (Verified 08/03/21 06:49) CONTINUE taking the following medications levothyroxine 137 mcg PO DAILY 08/04/21 [History] New Prescriptions ciprofloxacin HCl [Cipro] 500 mg PO Q12H #10 tab 08/06/21 [Rx] hydrocodone-acetaminophen 1 tab PO Q8H PRN #10 tab MDD 3 08/06/21 [Rx] Follow up and Referral Follow Up: 10 Days (Dr Tate ) 1 Week (PCP) Discharge Disposition Discharge Disposition: Home Discharge Condition: Stable Discharge Plan Discharge Plan Hospital Course: Ms Ontiveros is a 61 y/o female with a hx of GERD and hypothyroidism who presented with worsening abdominal pain, nausea/vomiting. Patient was seen in the ER earlier yesterday morning for similar symptoms, CTAP was recommended but due to patient not having insurance, she declined and opted for conservative treatment for gastritis. Patient states her abdominal pain got worse in the next 24 hrs. She was not able to eat or drink anything so she came back to the ER. She states initially she had right sided pain and then epigastric pain. In the ER, gall bladder U/S showed early signs of acute cholecystitis. Dr Tate was consulted and patient was admitted for further work-up. She was kept NPO with IVF and pain control. She was also started on IV antibiotics. Patient was taken for lap cholecystectomy the next morning. She did well after surgery with no complications. She was tolerating oral intake and pain was well controlled. She had a MINE drain which was removed. She was stable for discharge the next day. She will f/u with PCP and surgery as scheduled. Patient Disposition: 01 HOME, SELF-CARE Condition: Stable Health Concerns: Post Hospitalization: new medications and changes needed to prevent readmission or further decline. Pt educated and given instructions on all concerns. Care Plan Goals: Problem: Pain/Alteration in Comfort Goal: Improve/ Resolve Pain; Achieve Pain Tolerance Instructions: Take pain medications as prescribed. Contact your primary care provider if your pain is unrelieved or worsens. Follow up with primary care provider as directed. Plan of Treatment: Continue with present treatment and follow up plan. Pt is to keep follow up appointment as instructed and take medications as ordered. Prescriptions: New ciprofloxacin HCl [Cipro] 500 mg Tablet 500 mg PO Q12H Qty: 10 RF: 0 hydrocodone-acetaminophen 5-325 mg Tablet 1 tab PO Q8H MDD 3 PRNQty: 10 RF: 0 Continued sucralfate [Carafate] 1 gram tablet 1 g PO QID Qty: 20 RF: 0 hydrocodone-acetaminophen 5-325 mg tablet 1 tab PO Q4-6H MDD 6 PRN (Reason: severe pain) Qty: 12 RF: 0 levothyroxine 137 mcg tablet 137 mcg PO DAILY RF: 0 Orders to Discharge Patient Discharge Orders: Discharge (Routine); Ordered 08/06/21 Ordered By: YARITZA LIAO Follow ups/Referrals Follow ups/Referrals: YARITZA LIAO [STAFF PHYSICIAN] - 08/18/21 3:00 pm () YAQUELIN MOCTEZUMA [Primary Care Provider] - (Follow up as needed.) Instructions Instructions: Laparoscopic Cholecystectomy, Laparoscopic Cholecystectomy, Care After, Eating Plan for Dumping Syndrome, Gallbladder Eating Plan, Dumping Syndrome, Phillips Diet Stand Alone Forms: Precautions for [facility], [facility], Patient Portal, Social Distancing
--- NOTE | 2021-08-06 09:54 | DR.PROGNOT ---
Hospital Progress Notes - Progress Note for Day of: Progress Note Date: 08/06/21 - Chief Complaint Chief Complaint: no abdominal pain .. no nausea or vomiting. WBC is down to 13 .. LFT normal .. afebrile .. MINE was removed . - Past Medical Family Social History Past Med/Fam/Surg Hx: No changes since H&P Allergies: Allergies Penicillins Adverse Reaction (Verified 08/03/21 06:49) - Review Of Systems ROS: No change since H&P - Vital Signs Vital Signs: Temperature 98.5 F Pulse Rate [Left Brachial] 96 Pulse Rate [Right Brachial] 96 Pulse Rate 90 Respiratory Rate 18 Blood Pressure [Right Arm] 143/68 Blood Pressure [Left Arm] 144/66 Blood Pressure 122/60 O2 Sat by Pulse Oximetry 95 - Physical Exam Oriented: Normal Eyes: Normal Ear: Normal Nose: Normal Throat: Normal Cardiovascular: Normal GI:Auscultation: Normal GI: Tenderness: Other (soft, flat abdomen with only mild diffuse tenderness .. BS+) Skin: Normal Musculoskeletal: Normal Psychiatric: Normal Mood Description: Calm Affect: Normal Speech Pattern: Clear, Appropriate - Laboratory and Diagnostics Result Diagrams: 08/06/21 05:41 08/06/21 05:41 Labs: Laboratory WBC 13.4 X10^3/uL (3.6-10.0) H D 08/06/21 05:41 RBC 4.39 X10^6/uL (3.5-5.4) 08/06/21 05:41 Hgb 12.9 g/dL (12.0-16.0) 08/06/21 05:41 Hct 38.3 % (36.0-47.0) 08/06/21 05:41 MCV 87.4 fL (80.0-100.0) 08/06/21 05:41 MCH 29.3 pg (27.0-34.0) 08/06/21 05:41 MCHC 33.5 g/dL (33.0-35.0) 08/06/21 05:41 RDW 14.6 % (11.6-16.5) 08/06/21 05:41 Plt Count 227 X10^3/uL (150.0-450.0) 08/06/21 05:41 Plt Count Comment Adequate (ADEQUATE) 08/05/21 04:50 MPV 9.0 fL (7.4-11.0) 08/06/21 05:41 Neut % (Auto) 83.9 % (42.0-75.0) H 08/06/21 05:41 Lymph % (Auto) 5.7 % (21.0-51.0) L 08/06/21 05:41 Brooks % (Auto) 10.1 % (0.0-13.0) 08/06/21 05:41 Eos % (Auto) 0.1 % (0.9-2.9) L 08/06/21 05:41 Baso % (Auto) 0.2 % (0.2-1.0) 08/06/21 05:41 Neut # (Auto) 11.2 x10^3/uL (2.2-4.8) H 08/06/21 05:41 Lymph # (Auto) 0.8 X10^3/uL (1.3-2.9) L 08/06/21 05:41 Brooks # (Auto) 1.3 x10^3/uL (0.3-0.8) H 08/06/21 05:41 Eos # (Auto) 0.0 x10^3/uL (0.0-0.2) 08/06/21 05:41 Baso # (Auto) 0.0 X10^3/uL (0.0-0.1) 08/06/21 05:41 Absolute Nucleated RBC 0.0 /100WBC 08/06/21 05:41 Total Counted 100 08/05/21 04:50 Neutrophils % (Manual) 84 % (39-76) H 08/05/21 04:50 Lymphocytes % (Manual) 4 % (13-43) L 08/05/21 04:50 Monocytes % (Manual) 11 % (4-9) H 08/05/21 04:50 Eosinophils % (Manual) 1 % (0-6) 08/05/21 04:50 Plt Morphology Comment Normal (NORMAL) 08/05/21 04:50 RBC Morphology Normal (NORMAL) 08/05/21 04:50 Sodium 136 mmol/L (136-145) 08/06/21 05:41 Corrected Sodium 136 mmol/L (136-145) 08/06/21 05:41 Potassium 3.6 mmol/L (3.5-5.1) 08/06/21 05:41 Chloride 102 mmol/L (98-107) 08/06/21 05:41 Carbon Dioxide 31.7 mmol/L (21-32) 08/06/21 05:41 BUN 11 mg/dL (7-18) 08/06/21 05:41 Creatinine 1.05 mg/dL (0.55-1.02) H 08/06/21 05:41 Est GFR (MDRD) Af Amer > 60 (>60) 08/06/21 05:41 Est GFR (MDRD) Non-Af 57 (>60) L 08/06/21 05:41 Glucose 115 mg/dL (65-99) H 08/06/21 05:41 Calcium 7.9 mg/dL (8.5-10.1) L 08/06/21 05:41 Corrected Calcium 9.2 mg/dL (8.5-10.1) 08/06/21 05:41 Total Bilirubin 0.40 mg/dL (0.2-1.0) 08/06/21 05:41 AST 88 Units/L (15-37) H 08/06/21 05:41 ALT 73 Units/L (12-78) 08/06/21 05:41 Alkaline Phosphatase 69 Units/L (46-116) 08/06/21 05:41 Total Protein 6.6 g/dL (6.4-8.2) 08/06/21 05:41 Albumin 2.4 g/dL (3.4-5.0) L 08/06/21 05:41 Globulin 4.2 g/dL (2.5-4.5) 08/06/21 05:41 Albumin/Globulin Ratio 0.6 Ratio (1.1-2.1) L 08/06/21 05:41 Amylase 99 Units/L (25-115) 08/04/21 09:01 Lipase 500 Units/L (73-393) H 08/04/21 09:01 SARS CoV-2 RNA Rapid LISSETH Negative (NEGATIVE) 08/04/21 12:58 Tissue Pathology To follow 08/05/21 12:08 - Assessment and Plan 1: PO lap aide for acute and chronic calculus cholecystitis . abdominal adhesions .. to discharge and follow in 10 days . Cipro 500 BID .
== END 2021-08-06 11:30 | disposition home or self-care (01) ==
LOC: ER 08:44 → MED/SURG 08:44
PROVIDERS: ADMIT Internal Medicine; ATTEND Internal Medicine